=== PATIENT | male | born 2000 | race Two or more races ===

== ENCOUNTER 2023-02-08 17:54 | Emergency (ER) | payer SELFPAY ==
[~2023-02-08] VITALS: Ht 180.3 cm; Wt 104.5 kg
[2023-02-08 17:56] VITALS: BP 118/72; PULSE 95; RESP 18; TEMP 97.9
[2023-02-08] MEDS ORDERED: KETOROLAC TROMETHAMINE 60 MG/2 ML VIAL IM ONE (19:15)
[2023-02-08] MEDS ORDERED: LIDOCAINE 2% 6 ML JELLY TP ONE (19:15)
[2023-02-08] MEDS ORDERED: HYDROmorphone HCL 2 MG/ML SYRINGE IM ONE (19:15)
[2023-02-08] MEDS ORDERED: ONDANSETRON HCL 4 MG/2 ML VIAL IM ONE (19:15)
[2023-02-08] MEDS ORDERED: BACITRACIN 0.9 GM PACKET OINTMENT TP ONE (19:15)
[2023-02-08] MEDS ORDERED: PERTUSS(ACELL),DIPH,TET VAC/PF 0.5 ML SYRINGE IM. ONE (19:15)
[2023-02-08] MEDS ORDERED: ACET-2080 PO (21:29)
[2023-02-08] MEDS ORDERED: IBUP-1554 PO (21:29)
== END 2023-02-08 21:36 | disposition home or self-care (01) ==
LOC: EMS 17:54
DX: S92.911A Unspecified fracture of right toe(s), initial encounter for closed fracture (principal); S80.212A Abrasion, left knee, initial encounter; S80.211A Abrasion, right knee, initial encounter; F17.210 Nicotine dependence, cigarettes, uncomplicated; F12.90 Cannabis use, unspecified, uncomplicated; V29.888A Rider (driver) (passenger) of other motorcycle injured in other specified transport accidents, initial encounter; Y93.89 Activity, other specified; Y92.89 Other specified places as the place of occurrence of the external cause; Y99.8 Other external cause status
CPT/HCPCS: 99284; 29540; 73630 ×2; 90715; 90471; 96372; J1170; J1885; J2405; Q9967; 29280